=== PATIENT | female | born 1960 ===

== ENCOUNTER 2018-05-13 22:54 | Inpatient (IN) | payer MEDICARE, MEDICAID ==
[~2018-05-13] VITALS: Ht 162.6 cm; Wt 75.7 kg
[2018-05-13] MEDS ORDERED: ONDANSETRON 4 MG/2 ML VIAL IV ONE (23:30)
[2018-05-13] MEDS ORDERED: IV NORMAL SALINE 500 ML BAG IV ONE (23:30)
[2018-05-13] MEDS ORDERED: HYDROMORPHONE 1 MG/1 ML DISP.SYRIN IV ONE (23:30)
--- NOTE | 2018-05-13 23:30 | NUR ---
PT A/OX4, RESPONSIVE TO VERBAL AND TACTILE STIMULI. PT C/O ABD PAIN THAT STARTED AROUND 1300 TODAY. PT STATES SHE TOOK 2 NORCO 5/325 AND 4 ALEEVE TO RELIEVE PAIN FROM R SHOULDER SURGERY THAT SHE HAD ON Monday05/11/18. PT STATES THE ABD PAIN HAS NO PROVOKING FACTOR, SHARP AND ACHING IN QUALITY, DOES NOT RADIATE, 10/10, AND INTERMITTENT. ABD IS NON-DISTENDED IN APPEARANCE, BOWEL SOUNDS ACTIVE IN ALL QUADRANTS, AND SOFT TO TOUCH. PT DENIES C/P, SOB, N/V/D, DIZZINESS, HEADACHE. DAUGHTER AT BEDSIDE.
[2018-05-13] MEDS ORDERED: HYDROMORPHONE 1 MG/1 ML DISP.SYRIN ONE (23:31)
[2018-05-13] MEDS ORDERED: ONDANSETRON 4 MG/2 ML VIAL ONE (23:31)
[2018-05-13 23:53] LABS: BASOPHILS % (AUTO) 0.2 % (0.0-2.0); EOSINOPHILS # (AUTO) 0.1 K/uL (0.0-0.7); EOSINOPHILS % (AUTO) 0.6 % (0.0-7.0); HEMATOCRIT 33.5 % (31.2-41.9); HEMOGLOBIN 11.6 g/dL (10.9-14.3); LYMPHOCYTES # (AUTO) 1.3 K/uL (20.0-40.0); LYMPHOCYTES % (AUTO) 9.5 % (20.5-51.5); MEAN CORPUSCULAR HEMOGLOBIN 28.7 uug (24.7-32.8); MEAN CORPUSCULAR HGB CONC 35 g/dL (32.3-35.6); MEAN CORPUSCULAR VOLUME 83.1 fL (75.5-95.3); MONOCYTES # (AUTO) 0.8 K/uL (2.0-10.0); NEUTROPHILS # (AUTO) 11.5 K/uL (1.8-8.9); NEUTROPHILS % (AUTO) 83.7 % (38.5-71.5); PLATELET COUNT (AUTO) 272 K/uL (179-408); RED BLOOD CELL COUNT(AUTO) 4.04 MIL/uL (3.63-4.92); WHITE BLOOD COUNT (AUTO) 13.7 K/uL (3.8-11.8)
--- NOTE | 2018-05-14 | NUR ---
RHIANNON JIMÉNEZ AT BEDSIDE FOR PT UPDATE.
[2018-05-14] MEDS ORDERED: DEXL60CA3 PO (00:10)
[2018-05-14] MEDS ORDERED: ZOLP10TA6 PO (00:10)
[2018-05-14] MEDS ORDERED: VITAMIN D2 PO (00:10)
[2018-05-14] MEDS ORDERED: ROSU40TA PO (00:10)
[2018-05-14] MEDS ORDERED: CARV6.252 PO (00:10)
[2018-05-14] MEDS ORDERED: RISE35TA PO ×2 (00:10)
[2018-05-14] MEDS ORDERED: SUMA100T16 PO (00:10)
[2018-05-14] MEDS ORDERED: ESCI10TA PO (00:10)
[2018-05-14] MEDS ORDERED: CLOP75TA15 PO (00:10)
[2018-05-14] MEDS ORDERED: RANEXA PO (00:10)
[2018-05-14] MEDS ORDERED: ASPI81TA31 PO (00:10)
[2018-05-14 00:13] LABS: BILIRUBIN,DIRECT 0.1 mg/dL (0.0-0.2); BILIRUBIN,TOTAL 0.7 mg/dL (0.2-1.0); CREATININE 0.6 mg/dL (0.6-1.3); POTASSIUM 3.3 mmol/L (3.5-5.1); TOTAL PROTEIN, SERUM 7.5 g/dL (6.4-8.2)
--- NOTE | 2018-05-14 00:40 | NUR ---
CALLED [facility] FOR PANEL CALL. AWAITING CALL-BACK FROM DR. ALYX RAMOS.
--- NOTE | 2018-05-14 01:01 | NUR ---
CALLED [facility] FOR PANEL CALL. ATTEMPT 2. AWAITING CALL-BACK FROM DR. RAMOS.
[2018-05-14] MEDS ORDERED: HYDROMORPHONE 1 MG/1 ML DISP.SYRIN ONE (01:06)
--- NOTE | 2018-05-14 01:07 | NUR ---
RHIANNON JIMÉNEZ ON THE PHONE W/ DR. MUÑIZ RE PT ADMISSION.
[2018-05-14] MEDS ORDERED: HYDROMORPHONE 1 MG/1 ML DISP.SYRIN IV ONE (01:15)
[2018-05-14] MEDS ORDERED: MORPHINE SULFATE 2 MG/1 ML DISP.SYRIN IV PRN (01:15)
[2018-05-14] MEDS ORDERED: HYDROCODONE/APAP 5-325MG TABLET PO PRN (01:15)
[2018-05-14] MEDS ORDERED: MAGNESIUM HYDROXIDE 30 ML LIQUID UDC PO PRN (01:15)
[2018-05-14] MEDS ORDERED: HYDROCODONE/APAP 10-325 MG TABLET PO PRN (01:15)
[2018-05-14] MEDS ORDERED: Z GUARD REMEDY PASTE 57 GM TUBE TOP PRN (01:15)
[2018-05-14] MEDS ORDERED: ACETAMINOPHEN 325 MG TABLET PO PRN (01:15)
[2018-05-14] MEDS ORDERED: ONDANSETRON 4 MG/2 ML VIAL IV PRN (01:15)
--- NOTE | 2018-05-14 01:15 | NUR ---
RECEIVED PT VIA TETE FROM ER. PT UNDER THE CARE OF DR. HERMOSILLO DX: INTRACTABLE PAIN. PT SHOWS NO SIGNS OF DISTRESS. BELONGING LIST DONE. PENITENTIARY ASSESSMENT DONE. ADMISSION PROCESS AND CARE PLAN DONE. SAFETY AND COMFORT PROVIDED. WILL CONTINUE TO MONITOR.
--- NOTE | 2018-05-14 01:21 | NUR ---
GAVE ADMITTING REPORT TO YESENIA PEREZ.
--- NOTE | 2018-05-14 01:34 | NUR ---
Pt. admitted to M/S 208, under care of Dr. RAMOS. Belongs List completed.
[2018-05-14 02:00] VITALS: BP 125/63
[2018-05-14 04:00] VITALS: BP 137/58
[2018-05-14] MEDS: MORPHINE SULFATE 4 MG/1 ML DISP.SYRIN IV PRN ×2 (06:13→10:01)
--- NOTE | 2018-05-14 06:20 | NUR ---
NURSING NOTES Admitted pt to room 208 at 0115H, accompanied by daughter; ambulates, steady on feet; not in any distress; dressing on right shoulder changed in ER; plan of care explained; slept well till 0610 then c/o pain, unable to take [place], Morphine given IVP with good result; maintained on fall precaution; continue to monitor; continue plan of .
--- NOTE | 2018-05-14 08:00 | NUR ---
AWAKEALERT COOPERATE WELL NOSOB OR ABD PAIN DSG AT RT SHOULDERD/I WITH ARM SLING INPLACE NEURO VASCULAR CHECK WNL ON FALLPRECAUTION CALL LIANG IN REACH EAT CLEAR LIQ BREAKFAST MOD AMT
[2018-05-14] MEDS: CARVEDILOL 6.25 MG TABLET PO SCH (08:31)
[2018-05-14] MEDS: ESCITALOPRAM OXALATE 10 MG TABLET PO SCH (08:31)
--- NOTE | 2018-05-14 10:00 | NUR ---
OOB WITH ASSIST AND AMB WITH PHYSICAL THERAPY ,DOING WELL
--- NOTE | 2018-05-14 11:00 | NUR ---
RESTING WELL IN BEDSTATE PAIN MEDICINE HELP TO RELIEF PAIN
[2018-05-14 11:41] VITALS: BP 111/51
[2018-05-14] MEDS ORDERED: MAGNESIUM CITRATE 296 ML BOTTLE PO ONE (15:00)
[2018-05-14] MEDS ORDERED: FLEET ENEMA 133 ML BOTTLE RC ONE (15:00)
[2018-05-14] MEDS ORDERED: GOLYTELY 4000 ML BOTTLE PO ONE (15:00)
--- NOTE | 2018-05-14 15:20 | NUR ---
START GOLYTELY PO ORDER CONSENT SIGNS FOR EGD AND COLONOSCOPY ON Monday05/16/18
[2018-05-14 15:48] VITALS: BP 118/55
[2018-05-14] MEDS ORDERED: POTASSIUM CHLORIDE 20 MEQ TAB.PRT.SR PO ONE (16:15)
--- NOTE | 2018-05-14 17:00 | NUR ---
STOOL FOR OB SENT TO LAB ORDER,HAVING A LARGE BM THIS EVENING
--- NOTE | 2018-05-14 17:30 | NUR ---
STABLE CONDITION CONTINUE ON COLONOSCOPY/EGD PREP TOLPROCEDURE TAKING MEDICATION WELL NO ABD PAIN OR N/V SAFETY AND COMFORT MEASURE PROVIDED CALL LIGHT WITHIN REACH
--- NOTE | 2018-05-14 19:10 | NUR ---
RECEIVED PT AWAKE ON BED, AAOX4, DENIES ANY SOB OR DISCOMFORT AT THIS TIME. IV SITE ON L HAND, PATENT AND INTACT. SAFETY MEASURES INITIATED, PLACED BED ON LOW AND LOCKED POSITION, WITH TWO SIDE RAILS UP. CALL LIANG WITHIN REACH.
[2018-05-14 20:10] VITALS: BP 125/87
[2018-05-14] MEDS ORDERED: ATORVASTATIN 40 MG TABLET PO SCH (21:00)
[2018-05-14 23:21] LABS: *OCCULT BLOOD STOOL POSITIVE (NEGATIVE)
[2018-05-14] MEDS: TEMAZEPAM 30 MG CAPSULE PO PRN (23:58)
--- NOTE | 2018-05-15 | NUR ---
PT REQUESTING FOR SLEEPING AID. BEN CERTIFIED SURGICAL TECHNICIAN NOTIFIED, ORDER RECEIVED TO GIVE RESTORIL 30MG QHSPRN. ORDERS READ BACK AND CARRIED OUT.
[2018-05-15 04:36] VITALS: BP 138/70
[2018-05-15 06:30] LABS: BASOPHILS % (AUTO) 0.3 % (0.0-2.0); EOSINOPHILS # (AUTO) 0.1 K/uL (0.0-0.7); EOSINOPHILS % (AUTO) 1.8 % (0.0-7.0); HEMOGLOBIN 11.3 g/dL (10.9-14.3); LYMPHOCYTES # (AUTO) 1.7 K/uL (20.0-40.0); LYMPHOCYTES % (AUTO) 22.3 % (20.5-51.5); MEAN CORPUSCULAR HEMOGLOBIN 28.3 uug (24.7-32.8); MEAN CORPUSCULAR HGB CONC 33 g/dL (32.3-35.6); MEAN CORPUSCULAR VOLUME 85.2 fL (75.5-95.3); MONOCYTES # (AUTO) 0.4 K/uL (2.0-10.0); MONOCYTES % (AUTO) 5.9 % (0.0-11.0); NEUTROPHILS # (AUTO) 5.2 K/uL (1.8-8.9); NEUTROPHILS % (AUTO) 69.7 % (38.5-71.5); PLATELET COUNT (AUTO) 281 K/uL (179-408); RED BLOOD CELL COUNT(AUTO) 3.99 MIL/uL (3.63-4.92); WHITE BLOOD COUNT (AUTO) 7.5 K/uL (3.8-11.8)
[2018-05-15] MEDS: SUCRALFATE 1 G/10 ML LIQUID UDC GT SCH ×4 (06:36→20:40)
--- NOTE | 2018-05-15 06:38 | NUR ---
PT RESTING COMFORTABLY ON BED, AAOX4. NO SIGNS OF ACUTE DISTRESS NOTED AT THIS TIME. PULSE AND SENSATION PRESENT ON R ARM. ALL NEEDS ATTENDED AND MET. SAFE ENVIRONMENT MAINTAINED AT ALL TIMES, CALL LIANG WITHIN REACH.
[2018-05-15] MEDS ORDERED: PANTOPRAZOLE SODIUM 40 MG TABLET.DR PO SCH (07:00)
--- NOTE | 2018-05-15 08:00 | NUR ---
AWAKE ALERT COOPERATE WELL NO ABD PAIN OR N/V CONTINUE ON CLEAR LIQ DIET AND SCHEDULE FOR EGD/COLONOSCOPY TOMORROW ,WILL CONTINUE PREP TODAY UNTIL CLEAR BM RESTING QUIET IN BED WITH CALL LIGHT IN REACH
[2018-05-15 08:25] LABS: CREATININE 0.6 mg/dL (0.6-1.3); MAGNESIUM 2.3 mg/dL (1.8-2.4); PHOSPHOROUS 3.3 mg/dL (2.5-4.9); POTASSIUM 3.6 mmol/L (3.5-5.1)
[2018-05-15] MEDS ORDERED: PANTOPRAZOLE SODIUM 40 MG VIAL IV SCH (09:00)
--- NOTE | 2018-05-15 10:00 | NUR ---
STOOL WAS CLEAR YELLOW WITH SMALL PARTICLE ,OOB UP AMB WELL IN THE ENEGL WAY NO PAIN OR N/V
[2018-05-15] MEDS: CARVEDILOL 6.25 MG TABLET PO SCH (10:01)
[2018-05-15] MEDS: PANTOPRAZOLE SODIUM 40 MG VIAL IV SCH ×2 (10:01→16:39)
[2018-05-15] MEDS: ESCITALOPRAM OXALATE 10 MG TABLET PO SCH (10:01)
[2018-05-15 11:38] VITALS: BP 142/62
[2018-05-15 15:40] VITALS: BP 150/70
--- NOTE | 2018-05-15 16:00 | NUR ---
FIELD SERVICES DIRECTOR FOR DR CLARY CARDONA SEEN PATIENT THIS AFTERNOON ,NO NEW ORDER
--- NOTE | 2018-05-15 17:30 | NUR ---
STABLE HEMODYNAMIC STATUS ,PAIN UNDER CONTROL STOOL WAS CLEAR ,DOES NOT NEED FLEET ENEMA PO FLD TORRI MOD AMT WILL NPO AFTER MIDNIGHT AND SCHEDULE FOR EGD/COLONOSCOPY TOMORROW ,CONSENTS SIGNS SAFETY MEASURE PROVIDED CALL LIGHT IN REACH
[2018-05-15 20:06] VITALS: BP 150/69
--- NOTE | 2018-05-15 20:15 | NUR ---
Received pt in bed, AAO x 4 on her cellphone. No acute distress noted. Verbally responsive and able to make needs known. Denies pain or discomfort at this time. Explained that after midnight, MD ordered NPO status. Pt verbalized understanding. All safety measures and fall precautions maintained. Call light and all personal belongings within reach. Will continue to monitor.
[2018-05-15] MEDS: FERROUS SULFATE 325 MG TABEC PO SCH (20:40)
[2018-05-15] MEDS: TEMAZEPAM 30 MG CAPSULE PO PRN (22:48)
[2018-05-16 04:00] VITALS: BP 143/65
--- NOTE | 2018-05-16 06:44 | NUR ---
Patient slept comfortably throughout the shift, no acute distress noted. No complaints of pain throughout this shift. Safety maintained. All medications given per MD order, tolerated well. NPO maintained after midnight. All needs anticipated and met accordingly. Call light within reach and all personal belongings within reach. Will continue to monitor. Will endorse accordingly to oncoming shift.
[2018-05-16] MEDS: SUCRALFATE 1 G/10 ML LIQUID UDC GT SCH ×3 (06:52→16:44)
[2018-05-16 08:00] VITALS: BP 156/65
[2018-05-16] MEDS: CARVEDILOL 6.25 MG TABLET PO SCH (08:02)
[2018-05-16] MEDS: FERROUS SULFATE 325 MG TABEC PO SCH (09:00)
[2018-05-16] MEDS: ESCITALOPRAM OXALATE 10 MG TABLET PO SCH (09:00)
[2018-05-16] MEDS: PANTOPRAZOLE SODIUM 40 MG VIAL IV SCH ×2 (09:27→16:44)
[2018-05-16] MEDS ORDERED: MIDAZOLAM HCL 2 MG/2 ML VIAL ONE (09:32)
[2018-05-16] MEDS ORDERED: FENTANYL CITRATE 100 MCG/2 ML AMPUL ONE (09:33)
--- NOTE | 2018-05-16 09:45 | NUR ---
Pt picked up by OR staff YESENIA Downing for colonoscopy & EGD procedure. Pt left in stable condition. No s/s of acute distress noted.
[2018-05-16 11:30] VITALS: BP 135/65
--- NOTE | 2018-05-16 11:30 | NUR ---
Pt back from EGD & colonoscopy procedure. Per handoff report from OR nurse, EGD showed gastritis, mult. ulcers, duodenitis, and esophagitis. Biopsy done. Colonoscopy was negative. Pt tolerated procedure well. Will start LR at 25ml/hr IVF. Daughter at bedside. Will continue to monitor closely.
[2018-05-16 11:38] VITALS: BP 135/65
[2018-05-16] MEDS: BENAZEPRIL HCL 10 MG TABLET PO ONE ×2 (11:40→12:02)
[2018-05-16] MEDS: MORPHINE SULFATE 4 MG/1 ML DISP.SYRIN IV PRN (11:44)
[2018-05-16] MEDS ORDERED: IV LACTATED RINGERS SOLUTION 1,000 ML IV ONE (12:00)
--- NOTE | 2018-05-16 12:30 | NUR ---
Pt in bed awake A&O x4. No s/s of acute distress noted. Stated right shoulder pain down to 5/10 post morphine. Right shoulder with sling in place noted. Offered to assess incision site, however, pt preferred not to touch the dressing. Educated pt on risk of infection to site. Pt verbalized understanding but still refused. Per pt, she will follow up with her surgeon once she is discharged. Only able to tolerate vanilla ice cream for lunch on her full liquid diet tray. all needs met at this time. Will continue to monitor for change.
[2018-05-16] MEDS ORDERED: IV LACTATED RINGERS SOLUTION 1,000 ML BAG IV ONE (15:30)
[2018-05-16] MEDS ORDERED: LIDOCAINE HCL 2% 20 ML VIAL MC ONE (15:30)
[2018-05-16] MEDS ORDERED: PROPOFOL 200 MG/20 ML BOTTLE IV ONE (15:30)
[2018-05-16] MEDS ORDERED: SIMETHICONE 40 MG/0.6 ML 30 ML BOTTLE MC ONE (15:30)
[2018-05-16 16:16] VITALS: BP 115/62
[2018-05-16] MEDS ORDERED: SUCRALFATE 1 G TABLET PO SCH (16:30)
--- NOTE | 2018-05-16 16:35 | NUR ---
Assisted pt to the bathroom. Pt able to walk with stand by assist to bathroom. Noted with steady gait. Denies dizziness or pain.
[2018-05-16] MEDS ORDERED: SUCR1ORA GT (17:03)
[2018-05-16] MEDS ORDERED: DEXL60CA3 PO (17:03)
[2018-05-16] MEDS ORDERED: CARV3.12 PO (17:03)
[2018-05-16] MEDS ORDERED: ROSU10TA PO (17:03)
[2018-05-16] MEDS ORDERED: ASPI-618 PO (17:03)
--- NOTE | 2018-05-16 18:25 | NUR ---
Assisted pt to lobby via w/c for discharge. Pt accompanied by daughter. Pt left in fair condition. No s/s acute distress noted. Left with all discharge instructions, prescriptions, and all her belongings. Removed IV access to L hand and ID band.
[2018-05-17] MEDS ORDERED: BENAZEPRIL HCL 10 MG TABLET PO SCH (09:00)
== END 2018-05-16 18:40 | disposition home or self-care (01) | DRG 378 ==
LOC: ER 23:06 → MED 05-14 01:32
PROVIDERS: ATTEND Nurse Practitioner Acute Care
PROC: 0DB48ZX Excision of Esophagogastric Junction, Via Natural or Artificial Opening Endoscopic, Diagnostic (ICD-10-PCS; 2018-05-16)
PROC: 0DJD8ZZ Inspection of Lower Intestinal Tract, Via Natural or Artificial Opening Endoscopic (ICD-10-PCS; 2018-05-16)
PROC: 0DB98ZX Excision of Duodenum, Via Natural or Artificial Opening Endoscopic, Diagnostic (ICD-10-PCS; principal; 2018-05-16 10:16)
PROC: 0DB68ZX Excision of Stomach, Via Natural or Artificial Opening Endoscopic, Diagnostic (ICD-10-PCS; 2018-05-16 10:16)
DX: K25.0 Acute gastric ulcer with hemorrhage (principal); D62 Acute posthemorrhagic anemia; J98.11 Atelectasis; G89.18 Other acute postprocedural pain; M25.511 Pain in right shoulder; T39.315A Adverse effect of propionic acid derivatives, initial encounter; Y92.019 Unspecified place in single-family (private) house as the place of occurrence of the external cause; E87.6 Hypokalemia; K29.80 Duodenitis without bleeding; Z98.84 Bariatric surgery status; Z85.51 Personal history of malignant neoplasm of bladder; Z95.5 Presence of coronary angioplasty implant and graft; Z80.8 Family history of malignant neoplasm of other organs or systems; Z79.82 Long term (current) use of aspirin; Z79.02 Long term (current) use of antithrombotics/antiplatelets; R73.03 Prediabetes; I25.2 Old myocardial infarction; D72.828 Other elevated white blood cell count; K21.0 Gastro-esophageal reflux disease with esophagitis; I25.10 Atherosclerotic heart disease of native coronary artery without angina pectoris; I10 Essential (primary) hypertension
CPT/HCPCS: 36415; 71045; 82652; 82747; 83550; 83690; 83735; 84100; 84207; 84443; 85014; 85025; 85730; 86850; 86900; 86901; 88342; 93005; A4217; A4663; C9113; G0378; J1170; J2250; J2270; J2405; J3010; J3490; J7040; J7120